=== PATIENT | female | born 1965 | race African-American/Black ===

== ENCOUNTER 2019-11-04 13:50 | Emergency (ER) | payer OTHER ==
[~2019-11-04] VITALS: Ht 170.2 cm; Wt 104.5 kg
[2019-11-04 14:11] VITALS: Ht 170.2 cm; Wt 104.5 kg
[2019-11-04] MEDS ORDERED: PROAIR (14:12)
[2019-11-04] MEDS ORDERED: LIPITOR40 MG PO (14:12)
[2019-11-04] MEDS ORDERED: PROZAC10 MG (14:12)
[2019-11-04] MEDS ORDERED: ACETAMINOPHEN500 M1 PO (14:12)
[2019-11-04] MEDS ORDERED: MIRALAX17 GM PO (16:08)
[2019-11-04 16:25] VITALS: BP 132/71
[2019-11-04 16:27] LABS: APPEARANCE CLEAR (CLEAR); COLOR YELLOW (YELLOW)
[2019-11-04 16:28] LABS: BILIRUBIN NEGATIVE (NEGATIVE); GLUCOSE NEGATIVE (NEGATIVE); KETONE NEGATIVE (NEGATIVE); NITRITE NEGATIVE (NEGATIVE); PROTEIN NEGATIVE (NEGATIVE); UROBILINOGEN NORMAL (NORMAL)
== END 2019-11-04 16:25 | disposition home or self-care (01) ==
LOC: D.ER 13:50
PROVIDERS: Family Medicine
DX: K59.00 Constipation, unspecified (principal); R73.03 Prediabetes; I10 Essential (primary) hypertension; J45.909 Unspecified asthma, uncomplicated; G89.29 Other chronic pain

== ENCOUNTER 2020-12-23 20:48 | Emergency (ER) | payer OTHER ==
[~2020-12-23] VITALS: Ht 170.2 cm; Wt 110.9 kg
[~2020-12-23 20:48] MED LIST: ACETAMINOPHEN500 M1 PO; LIPITOR40 MG PO; MIRALAX17 GM PO; PROAIR; PROZAC10 MG
[2020-12-23 21:38] VITALS: Ht 170.2 cm; Wt 110.9 kg
[2020-12-23 23:24] VITALS: BP 131/79
== END 2020-12-23 23:15 | disposition home or self-care (01) ==
LOC: D.ER 20:48
DX: D25.9 Leiomyoma of uterus, unspecified (principal); E11.40 Type 2 diabetes mellitus with diabetic neuropathy, unspecified; J45.909 Unspecified asthma, uncomplicated; R10.11 Right upper quadrant pain